=== PATIENT | male | born 1980 | race Caucasian/White ===

== ENCOUNTER 2024-09-10 08:43 | Emergency (ER) | payer BC ==
[2024-09-10 08:52] VITALS: RESP 18
--- NOTE | 2024-09-10 09:07 | ED ---
General Adult HPI - General Chief complaint: Recheck/Abnormal Lab/Rx Stated complaint: Repeated hiccups Time Seen by Provider: 09/10/24 08:54 Source: patient, RN notes reviewed, old records reviewed Mode of arrival: ambulatory Limitations: no limitations - History of Present Illness Initial comments: Patient is a 43-year-old male who presents emergency department for persistent hiccups. Has been having them for the last 7 to 10 days. Has followed up with urgent care multiple times. States that baclofen seems to help with the hiccups. Took a dose earlier today, and this did improve his hiccups. Currently does not have them but was sent here by urgent care to be evaluated further. Has not had any further care at this point. No significant past medical history other than inguinal hernias. He did have these repaired. He has no acute complaints at this time. Denies chest pain, shortness of breath, abdominal pain, nausea, vomiting. States that no home remedies seem to help the hiccups, but the baclofen does. Presents for further evaluation. - Related Data Previous Rx's Medication Instructions Recorded Famotidine [Pepcid] 20 mg PO DAILY 14 Days #14 tablet 09/10/24 Metoclopramide [Reglan] 10 mg PO TID 10 Days #30 tab 09/10/24 Allergies Allergy/AdvReac Type Severity Reaction Status Date / Time No Known Allergies Allergy Verified 09/10/24 08:52 Review of Systems ROS Statement: Those systems with pertinent positive or pertinent negative responses have been documented in the HPI. Review of Systems: CONST: Denies fever EYES: Denies blurry vision ENT: Denies nasal congestion C/V: Denies Chest pain RESP: Denies shortness of breath GI: Denies abdominal pain : Denies dysuria SKIN: Denies rash. MSK: Denies joint pain. NEURO: Denies headache ROS Other: All systems not noted in ROS Statement are negative. Past Medical History Past Medical History: No Reported History Past Surgical History: Hernia Repair Past Psychological History: No Psychological Hx Reported Smoking Status: Never smoker Past Alcohol Use History: Occasional Past Drug Use History: None Reported General Exam - General Exam Comments Initial Comments: General: Appears in no acute distress. HEAD: Normal with no signs of head trauma. EYES: EOMI ENT: Hearing grossly intact, normal oropharynx. RESPIRATORY: Clear breath sounds bilaterally. No wheezes, rales, or rhonchi. C/V: Regular rate and rhythm. S1 and S2 auscultated, no edema, peripheral pulses 2+ and intact throughout ABD: Abd is soft, nontender, nondistended EXT: No obvious deformity SKIN: No rashes or lesions observed on exposed skin. NEURO: Alert and oriented x 4 Limitations: no limitations Course Vital Signs 09/10/24 08:49 Temperature 97.7 F Pulse Rate 93 Respiratory 18 Rate Blood Pressure 149/99 O2 Sat by Pulse 100 Oximetry Medical Decision Making - Medical Decision Making Was pt. sent in by a medical professional or institution (, [facility], [facility], urgent care, hospital, or fci...) When possible be specific @ -Sent by urgent care for further evaluation Did you speak to anyone other than the patient for history (EMS, parent, family, police, friend...)? What history was obtained from this source @ -No Did you review nursing and triage notes (agree or disagree)? Why? @ -I reviewed and agree with nursing and triage notes Were old charts reviewed (outside hosp., previous admission, EMS record, old EKG, old radiological studies, urgent care reports/EKG's, fci records)? Report findings @ -No old charts were reviewed Differential Diagnosis (chest pain, altered mental status, abdominal pain women, abdominal pain men, vaginal bleeding, weakness, fever, dyspnea, syncope, headache, dizziness, GI bleed, back pain, seizure, CVA, palpatations, mental health, musculoskeletal)? @ -Hiccups, electrolyte abnormality, cardiac abnormality. This list is not all inclusive. EKG interpreted by me (3pts min.). @ -As above X-rays interpreted by me (1pt min.). @ -Chest x-ray shows no evidence of acute cardiopulmonary process. CT interpreted by me (1pt min.). @ -None done U/S interpreted by me (1pt. min.). @ -None done What testing was considered but not performed or refused? (CT, X-rays, U/S, labs)? Why? @ -None What meds were considered but not given or refused? Why? @ -None Did you discuss the management of the patient with other professionals (pro fessionals i.e. , [facility], [facility], lab, RT, psych nurse, social media coordinator, director of strategic programs, teacher, business banking officer, residential case manager)? Give summary @ -No Was smoking cessation discussed for >3mins.? @ -No Was critical care preformed (if so, how long)? @ -No Were there social determinants of health that impacted care today? How? (Homelessness, low income, unemployed, alcoholism, drug addiction, transportation, low edu. Level, literacy, decrease access to med. care, prison, rehab)? @ -No Was there de-escalation of care discussed even if they declined (Discuss DNR or withdrawal of care, Hospice)? DNR status @ -No What co-morbidities impacted this encounter? (DM, HTN, Smoking, COPD, CAD, Cancer, CVA, ARF, Chemo, Hep., AIDS, mental health diagnosis, sleep apnea, morbid obesity)? @ -None Was patient admitted / discharged? Hospital course, mention meds given and route, prescriptions, significant lab abnormalities, going to OR and other pertinent info. @ -Patient has had persistent hiccups for the last 7 to 10 days. Only recent plan to baclofen. Took a dose of this prior to arrival and patient currently d oes not have any hiccups. Sent by urgent care for further evaluation and further workup as he has presented to them multiple times this week. We will obtain screening EKG, chest x-ray, as well as basic electrolyte laboratory studies. He was in agreement this plan. Vitals are within acceptable limits. He is in no acute distress. He will be given a dose of Pepcid. Chest x-ray unremarkable. EKG unremarkable, no signs of acute ischemic changes. Laboratory studies within acceptable limits. On reevaluation, patient continues to have no hiccups. I discussed results with him. He will be discharged home on Pepcid and Reglan. Instructed to follow-up with Dr. Sol his PCP. He was in agreement this plan. Strict return precautions discussed. I will provide the patient with a prescription for Pepcid, Reglan. I instructed the patient to follow up with their PCP in the next 1-3 days.. I explained that the patient should return to the emergency department if they experience any worsening symptoms. Strict return precautions were discussed with the patient. The patient expressed understanding of these instructions. I answered all questions that the patient had. The patient was discharged home in good condition with their prescriptions and follow up information. Patient had no hiccups throughout his stay in the ER. Undiagnosed new problem with uncertain prognosis? @ -No Drug Therapy requiring intensive monitoring for toxicity (Heparin, Nitro, Insulin, Cardizem)? @ -No Were any procedures done? @ -No Diagnosis/symptom? @ -Intractable hiccups Acute, or Chronic, or Acute on Chronic? @ -Acute Uncomplicated (without systemic symptoms) or Complicated (systemic symptoms)? @ -Uncomplicated Side effects of treatment? @ -None Exacerbation, Progression, or Severe Exacerbation] @ -No Poses a threat to life or bodily function? @ -Unlikely - Lab Data Result diagrams: 09/10/24 09:22 Lab Results 09/10/24 Range/Units 09:22 Sodium 139 (137-145) mmol/L Potassium 4.2 (3.5-5.1) mmol/L Chloride 103 (98-107) mmol/L Carbon Dioxide 26 (22-30) mmol/L Anion Gap 10 mmol/L BUN 15 (9-20) mg/dL Creatinine 0.85 (0.66-1.25) mg/dL Est GFR (CKD-EPI)AfAm >90 (>60 ml/min/1.73 sqM) Est GFR (CKD-EPI)NonAf >90 (>60 ml/min/1.73 sqM) Glucose 108 H (74-99) mg/dL Calcium 9.5 (8.4-10.2) mg/dL Magnesium 2.4 H (1.6-2.3) mg/dL Total Bilirubin 0.6 (0.2-1.3) mg/dL AST 27 (17-59) U/L ALT 32 (4-49) U/L Alkaline Phosphatase 73 (38-126) U/L Total Protein 7.7 (6.3-8.2) g/dL Albumin 4.8 (3.5-5.0) g/dL - EKG Data -: EKG Interpreted by Me EKG Comments: 12-lead Electrocardiogram Interpretation Note EKG was reviewed and interpreted by myself. 12-lead ECG performed at 0909 is interpreted by me as revealing normal sinus rhythm at a rate of 75 beats per minute. Challenge is normal. MA interval is 173 ms, QRS duration is 96 ms, QTc is 395 ms. There were no ST or T wave abnormalities to suggest myocardial ischemia or injury. R wave progression across the precordium was satisfactory. By my interpretation this EKG is non-diagnostic for acute ischemia. Disposition Clinical Impression: Intractable hiccups Disposition: HOME SELF-CARE Condition: Good Instructions (If sedation given, give patient instructions): Hiccups (ED) Prescriptions: Famotidine [Pepcid] 20 mg PO DAILY 14 Days #14 tablet Metoclopramide [Reglan] 10 mg PO TID 10 Days #30 tab Is patient prescribed a controlled substance at d/c from ED?: No Referrals: Trever Sol MD [Primary Care Provider] - 1-2 days Time of Disposition: 09:54
[2024-09-10] MEDS: FAMOTIDINE 20 MG/2 ML VIAL IV STA (09:20)
--- NOTE | 2024-09-10 09:35 | XR ---
Chest, 2 view. CLINICAL INDICATION: Male, 43 years old with history of persistent hiccups COMPARISON: TECHNIQUE: PA and lateral views the chest are obtained. FINDINGS: The lungs are clear and there is no consolidative or interstitial opacity. There is no pleural effusion or pneumothorax. The heart, pulmonary vasculature, mediastinum and sonido appear normal. The osseous structures are intact. IMPRESSION: No significant abnormality seen. No acute cardiopulmonary disease. [facility], , 09/10/2024 9:33 AM
[2024-09-10 09:42] LABS: ALT 32 U/L (4-49); AST 27 U/L (17-59); African American GFR (CKD) >90 (>60 ml/min/1.73 sqM); Albumin 4.8 g/dL (3.5-5.0); Alkaline Phosphatase 73 U/L (38-126); Anion Gap 10 mmol/L; Blood Urea Nitrogen 15 mg/dL (9-20); Calcium 9.5 mg/dL (8.4-10.2); Carbon Dioxide 26 mmol/L (22-30); Chloride 103 mmol/L (98-107); Glucose 108 mg/dL (74-99); Magnesium 2.4 mg/dL (1.6-2.3); Non-African American GFR(CKD) >90 (>60 ml/min/1.73 sqM); Potassium 4.2 mmol/L (3.5-5.1); Sodium 139 mmol/L (137-145); Total Bilirubin 0.6 mg/dL (0.2-1.3); Total Protein 7.7 g/dL (6.3-8.2)
[2024-09-10 10:06] VITALS: BP 125/81; PULSE 67; TEMP 98
== END 2024-09-10 10:05 | disposition home or self-care (01) ==
LOC: EC 08:43
DX: R06.6 Hiccough (principal)
CPT/HCPCS: 36415; 93005; 80053; 83735; 71046; 99284; 96374; J3490

== ENCOUNTER 2024-09-11 06:50 | Emergency (ER) | payer BC ==
--- NOTE | 2024-09-11 07:25 | ED ---
Recheck HPI - General Chief Complaint: Recheck/Abnormal Lab/Rx Stated Complaint: Hiccups Time Seen by Provider: 09/11/24 07:07 Source: patient, RN notes reviewed Mode of arrival: ambulatory Limitations: no limitations - History of Present Illness Initial Comments: This is a 43-year-old male who presents to the emergency department for hiccups. Patient states that this started 8 days ago and has been constant. He has been to urgent care twice and was started on baclofen. However, this has not been effective. He was then advised by urgent care yesterday to come here for further evaluation. He had blood work and a chest x-ray done to rule out any other abnormalities, which he states was unremarkable. He was discharged home with Pepcid and Reglan, but states that they have not been helping. He is unable to eat or drink anything as a result. Denies any history of similar problems in the past. Also denies any chest pain, shortness of breath, abdominal pain, nausea, or vomiting. - Related Data Previous Rx's Medication Instructions Recorded Famotidine [Pepcid] 20 mg PO DAILY 14 Days #14 tablet 09/10/24 Metoclopramide [Reglan] 10 mg PO TID 10 Days #30 tab 09/10/24 chlorproMAZINE [Thorazine] 25 mg PO TID #30 tablet 09/11/24 Allergies Allergy/AdvReac Type Severity Reaction Status Date / Time No Known Allergies Allergy Verified 09/11/24 07:04 Review of Systems ROS Statement: Those systems with pertinent positive or pertinent negative responses have been documented in the HPI. ROS Other: All systems not noted in ROS Statement are negative. Past Medical History Past Medical History: No Reported History Past Surgical History: Hernia Repair Past Psychological History: No Psychological Hx Reported Smoking Status: Never smoker Past Alcohol Use History: Occasional Past Drug Use History: None Reported General Exam Limitations: no limitations General appearance: alert, in no apparent distress Head exam: Present: atraumatic, normocephalic, normal inspection Respiratory exam: Present: normal lung sounds bilaterally. Absent: respiratory distress, wheezes, rales, rhonchi, stridor Cardiovascular Exam: Present: regular rate, normal rhythm GI/Abdominal exam: Present: soft, normal bowel sounds. Absent: distended, tenderness, guarding, rebound, rigid Neurological exam: Present: alert, oriented X3, CN II-XII intact Psychiatric exam: Present: normal affect, normal mood Skin exam: Present: warm, dry, intact, normal color. Absent: rash Course Vital Signs 09/11/24 09/11/24 09/11/24 07:04 07:52 07:57 Temperature 97.8 F Pulse Rate 85 Respiratory 18 20 Rate Blood Pressure 122/81 118/76 O2 Sat by Pulse 100 Oximetry 09/11/24 09/11/24 09/11/24 08:18 08:40 08:56 Temperature 98.1 F Pulse Rate 123 H 148 H 112 H Respiratory 26 H 24 Rate Blood Pressure 132/82 136/80 O2 Sat by Pulse 98 99 Oximetry 09/11/24 09/11/24 09/11/24 09:11 09:21 09:35 Temperature 98.1 F Pulse Rate 98 122 H 99 Respiratory 22 22 Rate Blood Pressure 148/80 136/86 O2 Sat by Pulse 99 99 Oximetry Medical Decision Making - Medical Decision Making This is a 43-year-old male who presents to the emergency department for hiccups. Was pt. sent in by a medical professional or institution? @ -No Did you speak to anyone other than the patient for history? @ -No Did you review nursing and triage notes? @ -Yes, and I agree, it is accurate with regards to the patient's symptoms. Were old charts reviewed? @ -Chest x-ray and CMP from yesterday which were unremarkable. Differential Diagnosis? @ -Gastritis, peptic ulcer disease, pancreatitis, pneumonia, hyponatremia, this is not meant to be an all-inclusive list. EKG interpreted by me (3pts min.)? @ -Not obtained X-rays interpreted by me (1pt min.)? @ -Not obtained CT interpreted by me (1pt min.)? @ -Not obtained U/S interpreted by me (1pt. min.)? @ -Not obtained What testing was considered but not performed? (CT, X-rays, U/S, labs)? Why? @ -None What meds were considered but not given? Why? @ -None Did you discuss the management of the patient with other professionals? @ -No Did you reconcile home meds? @ -No Was smoking cessation discussed for >3mins.? @ -No Was critical care preformed (if so, how long)? @ -No Were there social determinants of health that impacted care today? How? (Homelessness, low income, unemployed, alcoholism, drug addiction, transportation, low edu. Level, literacy, decrease access to med. care, retirement, rehab)? @ -No Was there de-escalation of care discussed even if they declined? (Discuss DNR or withdrawal of care, Hospice)? @ -No What co-morbidities impacted this encounter? (DM, HTN, Smoking, COPD, CAD, Cancer, CVA, Hep., AIDS, mental health diagnosis, sleep apnea, morbid obesity)? @ -None Was patient admitted / discharged? @ -Discharged. Patient had active hiccups on exam. When he was evaluated here yesterday he had a laboratory evaluation and a chest x-ray which were both unremarkable. He has been on baclofen, Reglan, and famotidine without any relief. He was subsequently started on a Thorazine infusion with pantoprazole and IV fluids. The hiccups resolved with these medications and he was tolerating oral intake. Thorazine prescribed for further management of any additional hiccups. Advised to follow-up with his PCP in the next couple of days to eventually taper off of this medication. Patient discharged home in stable condition. Case discussed with ED attending Dr. Hays. Return precautions reviewed in depth, the patient is instructed to return to the emergency department with any new, worsening, or concerning symptoms. Patient verbalized understanding. Undiagnosed new problem with uncertain prognosis? @ -None Drug Therapy requiring intensive monitoring for toxicity (Heparin, Nitro, Insulin, Cardizem)? @ -None Were any procedures done? @ -None Diagnosis/symptom? @ -Hiccups Acute, or Chronic, or Acute on Chronic? @ -Acute Uncomplicated (without systemic symptoms) or Complicated (systemic symptoms)? @ -Uncomplicated Side effects of treatment? @ -None Exacerbation, Progression, or Severe Exacerbation] @ -Not applicable Poses a threat to life or bodily function? @ -No Disposition Clinical Impression: Intractable hiccups Disposition: HOME SELF-CARE Instructions (If sedation given, give patient instructions): Hiccups (ED) Additional Instructions: Return to the emergency department with any new, worsening, or concerning sy mptoms. Take the chlorpromazine 3 times daily. If the hiccups return, you can increase this to 2 tablets (50 mg) 3 times daily. Make sure you follow-up with your primary care provider to eventually taper off of the medication. Prescriptions: chlorproMAZINE [Thorazine] 25 mg PO TID #30 tablet Is patient prescribed a controlled substance at d/c from ED?: No Referrals: Trever Sol MD [Primary Care Provider] - 1-2 days Time of Disposition: 08:46
[2024-09-11] MEDS: PANTOPRAZOLE 40 MG/10 ML VIAL IVP ONE (07:46)
[2024-09-11] MEDS: chlorproMAZINE 50 MG in SODIUM CHLORIDE 0.9% 50 ML IV SCH (07:47)
[2024-09-11] MEDS: SODIUM CHLORIDE 0.9% 1,000 ML IV ONE ×2 (07:48→08:59)
[2024-09-11] MEDS: chlorproMAZINE 25 MG/ML 2 ML AMP IM STA (08:00)
[2024-09-11 08:20] VITALS: TEMP 98.1
[2024-09-11 09:12] VITALS: RESP 22
[2024-09-11 09:37] VITALS: BP 136/86; PULSE 99
== END 2024-09-11 09:36 | disposition home or self-care (01) ==
LOC: EC 06:50
DX: R06.6 Hiccough (principal)
CPT/HCPCS: 99283; 96365; 96375; 96361; J3230; J3360; J2470

== ENCOUNTER 2024-10-31 10:15 | Observation (INO) | payer BC ==
[2024-10-31] MEDS: SODIUM CHLORIDE 0.9% 1,000 ML IV STA (11:29)
[2024-10-31] MEDS: MECLIZINE 12.5 MG TAB PO STA (11:30)
[2024-10-31 11:38] LABS: Appearance,Urine Clear (Clear); Bilirubin,Urine Negative (Negative); Blood,Urine Negative (Negative); Color,Urine Light Yellow; Glucose,Urine (UA) Negative (Negative); Ketones,Urine Negative (Negative); Leukocyte Esterase,Urine Negative (Negative); Nitrite,Urine Negative (Negative); PH, Urine 6.5 (5.0-8.0); Protein,Urine Negative (Negative); Urobilinogen,Urine <2.0 mg/dL (<2.0)
[2024-10-31 11:40] LABS: Basophils # (A) 0.08 10*3/uL (0.00-0.10); Basophils % (A) 1.3 %; Eosinophils # (A) 0.08 10*3/uL (0.04-0.35); Eosinophils % (A) 1.3 %; HCT 47.4 % (39.6-50.0); HGB 16.9 g/dL (13.0-17.0); Lymphocytes # (A) 1.01 10*3/uL (0.90-5.00); Lymphocytes % (A) 16.8 %; MCH 31.1 pg (27.0-32.0); MCHC 35.7 g/dL (32.0-37.0); MCV 87.1 fL (80.0-97.0); Monocytes # (A) 0.34 10*3/uL (0.20-1.00); Monocytes % (A) 5.7 %; Neutrophils # (A) 4.48 10*3/uL (1.80-7.70); Neutrophils % (A) 74.6 %; Platelet Count 202 10*3/uL (140-440); RBC 5.44 10*6/uL (4.40-5.60); RDW 11.6 % (11.5-14.5); WBC 6.01 10*3/uL (4.50-10.00)
--- NOTE | 2024-10-31 11:57 | CT ---
EXAMINATION TYPE: CT brain wo con DATE OF EXAM: 10/31/2024 11:54 AM COMPARISON: None. CLINICAL INDICATION: Male, 43 years old with history of recurrent near syncope, Recurrent near syncop e, TECHNIQUE: Examination was done in axial plane without intravenous contrast. Coronal and sagittal r econstructions performed. CT DLP: 1098.4 mGycm, Automated exposure control for dose reduction was used. FINDINGS: There is no evidence of acute intracranial hemorrhage, acute ischemic changes, mass, mass-effect, or extra-axial fluid collection. There is no effacement of cerebral sulci or basal subarachnoid cister ns. There is no hydrocephalus. There is no midline shift. Fields-white matter distinction is preserv ed. Some lobulated mucosal thickening floor of the left maxillary sinus. Mild mucosal thickening ethmoid air cells. Mastoid air cells well pneumatized. IMPRESSION: No acute intracranial abnormality seen. [facility], Workstation: [facility], 10/31/2024 11:55 AM
[2024-10-31 12:01] LABS: ALT 41 U/L (4-49); AST 35 U/L (17-59); African American GFR (CKD) >90 (>60 ml/min/1.73 sqM); Albumin 4.7 g/dL (3.5-5.0); Alkaline Phosphatase 70 U/L (38-126); Anion Gap 9 mmol/L; Blood Urea Nitrogen 20 mg/dL (9-20); Calcium 9.5 mg/dL (8.4-10.2); Carbon Dioxide 27 mmol/L (22-30); Chloride 102 mmol/L (98-107); Creatine Kinase 159 U/L (55-170); Glucose 126 mg/dL (74-99); Magnesium 2.2 mg/dL (1.6-2.3); Non-African American GFR(CKD) >90 (>60 ml/min/1.73 sqM); Potassium 4.4 mmol/L (3.5-5.1); Sodium 138 mmol/L (137-145); Total Bilirubin 0.8 mg/dL (0.2-1.3); Total Protein 7.5 g/dL (6.3-8.2)
[2024-10-31 12:12] LABS: NT-Pro-B-Type Natriuretic Pept <20 pg/mL
[2024-10-31 12:15] LABS: Influenza A Not Detected (Not Detectd); Influenza B Not Detected (Not Detectd); RSV Not Detected (Not Detectd)
--- NOTE | 2024-10-31 12:52 | XR ---
EXAMINATION TYPE: XR chest 2V DATE OF EXAM: 10/31/2024 12:12 PM COMPARISON: 09/10/24 CLINICAL INDICATION: Male, 43 years old with history of near syncope, Chest pain TECHNIQUE: XR chest 2V views of the chest are obtained. FINDINGS: There is no focal air space opacity. No evidence for pneumothorax. No pleural effusion. The cardiac silhouette size is within normal limits. The osseous structures are grossly intact. IMPRESSION: 1. No acute cardiopulmonary process. [facility], , 10/31/2024 12:49 PM
[2024-10-31] MEDS ORDERED: ACETAMINOPHEN TAB 325 MG TAB PO PRN (13:40)
[2024-10-31] MEDS ORDERED: NALOXONE 0.4 MG/ML 1 ML VIAL IV PRN (13:40)
[2024-10-31] MEDS ORDERED: ONDANSETRON 4 MG/2 ML VIAL IVP PRN (13:40)
--- NOTE | 2024-10-31 13:49 | ED ---
General Adult HPI - General Chief complaint: Dizziness Stated complaint: Dizziness, heart complications Time Seen by Provider: 10/31/24 10:50 Source: patient, RN notes reviewed, old records reviewed Mode of arrival: EMS Limitations: no limitations - History of Present Illness Initial comments: Patient is a 43-year-old male who presents emergency department complaining of multiple weeks of worsening lightheadedness as well as near syncopal ep isodes.Describes lightheadedness as a lightheaded feeling but no room spinning. This has become more frequent particularly over the last week or so per patient. No cardiac history. Denies any chest pain or shortness of breath. States he occasionally gets diaphoretic when he has the symptoms. Denies any cough, congestion, fevers. No other obvious acute complaints. No recent long distance travel. No evidence of lower extremity swelling. No history of blood clots. 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 Has no acute complaints. States symptoms have been worse over the last few days. States he gets tunnel vision as well as lightheadedness and feels like he is going to pass out but has not actually had a syncopal episode. He has recurrent near syncope with the above complaints. - Related Data Home Medications Medication Instructions Recorded Confirmed Ibuprofen [Motrin Ib] 600 mg PO Q6H PRN 10/31/24 10/31/24 Allergies Allergy/AdvReac Type Severity Reaction Status Date / Time No Known Allergies Allergy Verified 10/31/24 13:26 Review of Systems ROS Statement: Those systems with pertinent positive or pertinent negative responses have been documented in the HPI. Review of Systems: CONST: Denies fever EYES: Denies blurry vision ENT: Denies nasal congestion C/V: Denies Chest pain RESP: Denies shortness of breath GI: Denies abdominal pain : Denies dysuria SKIN: Denies rash. MSK: Denies joint pain. NEURO: Endorses lightheadedness ROS Other: All systems not noted in ROS Statement are negative. Past Medical History Past Medical History: No Reported History Past Surgical History: Hernia Repair Past Psychological History: No Psychological Hx Reported Smoking Status: Never smoker Past Alcohol Use History: Occasional Past Drug Use History: None Reported General Exam - General Exam Comments Initial Comments: General: Appears in no acute distress. HEAD: Normal with no signs of head trauma. EYES: EOMI pupils are 3 mm and equal bilaterally. ENT: Hearing grossly intact, normal oropharynx. RESPIRATORY: Clear breath sounds bilaterally. No wheezes, rales, or rhonchi. C/V: Regular rate and rhythm. S1 and S2 auscultated, no edema, peripheral pulses 2+ and intact throughout ABD: Abd is soft, nontender, nondistended EXT: No obvious deformity SKIN: No rashes or lesions observed on exposed skin. NEURO: Alert and oriented x 4. Cranial nerves II-XII intact. No focal sensory or strength deficits. NIH is 0. GCS 15. Limitations: no limitations Course Vital Signs 10/31/24 10/31/24 10/31/24 10:16 11:05 13:03 Temperature 97.9 F 98 F Pulse Rate 91 77 Pulse Rate [ 90 Apical] Respiratory 18 16 Rate Blood Pressure 145/91 125/76 O2 Sat by Pulse 98 100 Oximetry Medical Decision Making - Medical Decision Making Was pt. sent in by a medical professional or institution (, PA, [employer], urgent care, hospital, or halfway...) When possible be specific @ -No Did you speak to anyone other than the patient for history (EMS, parent, family, police, friend...)? What history was obtained from this source @ -No Did you review nursing and triage notes (agree or disagree)? Why? @ -I reviewed and agree with nursing and triage notes Were old charts reviewed (outside hosp., previous admission, EMS record, old EKG, old radiological studies, urgent care reports/EKG's, halfway records)? Report findings @ -No old charts were reviewed Differential Diagnosis (chest pain, altered mental status, abdominal pain women, abdominal pain men, vaginal bleeding, weakness, fever, dyspnea, syncope, heada kandice, dizziness, GI bleed, back pain, seizure, CVA, palpatations, mental health, musculoskeletal)? @ -Differential Syncope: Valvular disease, hypertrophic cardiomyopathy, pulmonary embolism, tamponade, tachycardia, bradycardia, [place], hypovolemia, hemorrhage, dissection, anemia, intracranial hemorrhage, seizure, hypoglycemia, carbon monoxide poisoning, this is not meant to be an all-inclusive list. EKG interpreted by me (3pts min.). @ -As above X-rays interpreted by me (1pt min.). @ -Chest x-ray reveals no obvious acute cardiopulmonary process. CT interpreted by me (1pt min.). @ -CT brain reveals no obvious acute intracranial process. U/S interpreted by me (1pt. min.). @ -None done What testing was considered but not performed or refused? (CT, X-rays, U/S, labs)? Why? @ -None What meds were considered but not given or refused? Why? @ -None Did you discuss the management of the patient with other professionals (professionals i.e. , PA, [employer], lab, RT, psych nurse, social work program coordinator, fireboat operator, teacher, seaman officer, pillowcase cutter)? Give summary @ -Discussed with admitting provider, Dr. Sol who accepted the admission. Was smoking cessation discussed for >3mins.? @ -No Was critical care preformed (if so, how long)? @ -No Were there social determinants of health that impacted care today? How? (Homelessness, low income, unemployed, alcoholism, drug addiction, transportation, low edu. Level, literacy, decrease access to med. care, prison, rehab)? @ -No Was there de-escalation of care discussed even if they declined (Discuss DNR or withdrawal of care, Hospice)? DNR status @ -No What co-morbidities impacted this encounter? (DM, HTN, Smoking, COPD, CAD, Cancer, CVA, ARF, Chemo, Hep., AIDS, mental health diagnosis, sleep apnea, morbid obesity)? @ -None Was patient admitted / discharged? Hospital course, mention meds given and route, prescriptions, significant lab abnormalities, going to OR and other pertinent info. @ -Presents for numerous lightheadedness and near syncopal episodes. We will obtain cardiac workup and discussed with patient we also obtain CT brain. S ymptoms have been worsening over the last few days but have progressively gotten worse. He will be given IV fluids as well as a dose of meclizine. He was in agreement this plan. EKG shows no signs of acute ischemia. CT brain and chest x-ray unremarkable. Labs are also all within acceptable limits. I discussed results with the patient and he is still having some lightheadedness. No near syncopal episodes since arrival. After discussion with the patient, we will admit the patient observation for cardiology evaluation. I spoke with the admitting provider, Dr. Sol who accepted the admission. Echo ordered. Undiagnosed new problem with uncertain prognosis? @ -No Drug Therapy requiring intensive monitoring for toxicity (Heparin, Nitro, Insulin, Cardizem)? @ -No Were any procedures done? @ -No Diagnosis/symptom? @ -Lightheadedness, near syncope Acute, or Chronic, or Acute on Chronic? @ -Acute Uncomplicated (without systemic symptoms) or Complicated (systemic symptoms)? @ -Complicated Side effects of treatment? @ -No Exacerbation, Progression, or Severe Exacerbation? @ -No Poses a threat to life or bodily function? How? (Chest pain, USA, WA, pneumonia, PE, COPD, DKA, ARF, appy, cholecystitis, CVA, Diverticulitis, Homicidal, Suicidal, threat to staff... and all critical care pts) @ -Potentially, yes - Lab Data Result diagrams: 10/31/24 11:25 10/31/24 11:25 Lab Results 10/31/24 10/31/24 10/31/24 Range/Units 11:25 11:25 11:25 WBC 6.01 (4.50-10.00) 10*3/uL RBC 5.44 (4.40-5.60) 10*6/uL Hgb 16.9 (13.0-17.0) g/dL Hct 47.4 (39.6-50.0) % MCV 87.1 (80.0-97.0) fL MCH 31.1 (27.0-32.0) pg MCHC 35.7 (32.0-37.0) g/dL Plt Count 202 (140-440) 10*3/uL MPV 10.0 (9.5-12.2) fL Immature Gran % (Auto) 0.3 % Neutrophils % 74.6 % Lymphocytes % 16.8 % Monocytes % 5.7 % Eosinophils % 1.3 % Basophils % 1.3 % Immature Gran # 0.02 (0.00-0.04) 10*3/uL Neutrophils # 4.48 (1.80-7.70) 10*3/uL Lymphocytes # 1.01 (0.90-5.00) 10*3/uL Monocytes # 0.34 (0.20-1.00) 10*3/uL Eosinophils # 0.08 (0.04-0.35) 10*3/uL Basophils # 0.08 (0.00-0.10) 10*3/uL D-Dimer (<0.60) mg/L FEU Sodium 138 (137-145) mmol/L Potassium 4.4 (3.5-5.1) mmol/L Chloride 102 (98-107) mmol/L Carbon Dioxide 27 (22-30) mmol/L Anion Gap 9 mmol/L BUN 20 (9-20) mg/dL Creatinine 0.84 (0.66-1.25) mg/dL Est GFR (CKD-EPI)AfAm >90 (>60 ml/min/1.73 sqM) Est GFR (CKD-EPI)NonAf >90 (>60 ml/min/1.73 sqM) Glucose 126 H (74-99) mg/dL Plasma Lactic Acid Jordan (0.7-2.0) mmol/L Calcium 9.5 (8.4-10.2) mg/dL Magnesium 2.2 (1.6-2.3) mg/dL Total Bilirubin 0.8 (0.2-1.3) mg/dL AST 35 (17-59) U/L ALT 41 (4-49) U/L Alkaline Phosphatase 70 (38-126) U/L Creatine Kinase 159 (55-170) U/L Troponin I (0.000-0.034) ng/mL NT-Pro-B Natriuret Pep <20 pg/mL Total Protein 7.5 (6.3-8.2) g/dL Albumin 4.7 (3.5-5.0) g/dL TSH 1.690 (0.465-4.680) mIU/L Urine Color Light Yellow Urine Appearance Clear (Clear) Urine pH 6.5 (5.0-8.0) Ur Specific [place] 1.020 (1.001-1.035) Urine Protein Negative (Negative) Urine Glucose (UA) Negative (Negative) Urine Ketones Negative (Negative) Urine Blood Negative (Negative) Urine Nitrite Negative (Negative) Urine Bilirubin Negative (Negative) Urine Urobilinogen <2.0 (<2.0) mg/dL Ur Leukocyte Esterase Negative (Negative) Influenza Type A (PCR) (Not Detectd) Influenza Type B (PCR) (Not Detectd) RSV (PCR) (Not Detectd) SARS-CoV-2 (PCR) (Not Detectd) 04/29/25 04/29/25 04/29/25 Range/Units 11:25 11:25 11:25 WBC (4.50-10.00) 10*3/uL RBC (4.40-5.60) 10*6/uL Hgb (13.0-17.0) g/dL Hct (39.6-50.0) % MCV (80.0-97.0) fL MCH (27.0-32.0) pg MCHC (32.0-37.0) g/dL Plt Count (140-440) 10*3/uL MPV (9.5-12.2) fL Immature Gran % (Auto) % Neutrophils % % Lymphocytes % % Monocytes % % Eosinophils % % Basophils % % Immature Gran # (0.00-0.04) 10*3/uL Neutrophils # (1.80-7.70) 10*3/uL Lymphocytes # (0.90-5.00) 10*3/uL Monocytes # (0.20-1.00) 10*3/uL Eosinophils # (0.04-0.35) 10*3/uL Basophils # (0.00-0.10) 10*3/uL D-Dimer 0.22 (<0.60) mg/L FEU Sodium (137-145) mmol/L Potassium (3.5-5.1) mmol/L Chloride (98-107) mmol/L Carbon Dioxide (22-30) mmol/L Anion Gap mmol/L BUN (9-20) mg/dL Creatinine (0.66-1.25) mg/dL Est GFR (CKD-EPI)AfAm (>60 ml/min/1.73 sqM) Est GFR (CKD-EPI)NonAf (>60 ml/min/1.73 sqM) Glucose (74-99) mg/dL Plasma Lactic Acid [place] 1.0 (0.7-2.0) mmol/L Calcium (8.4-10.2) mg/dL Magnesium (1.6-2.3) mg/dL Total Bilirubin (0.2-1.3) mg/dL AST (17-59) U/L ALT (4-49) U/L Alkaline Phosphatase (38-126) U/L Creatine Kinase (55-170) U/L Troponin I <0.012 (0.000-0.034) ng/mL NT-Pro-B Natriuret Pep pg/mL Total Protein (6.3-8.2) g/dL Albumin (3.5-5.0) g/dL TSH (0.465-4.680) mIU/L Urine Color Urine Appearance (Clear) Urine pH (5.0-8.0) Ur Specific [place] (1.001-1.035) Urine Protein (Negative) Urine Glucose (UA) (Negative) Urine Ketones (Negative) Urine Blood (Negative) Urine Nitrite (Negative) Urine Bilirubin (Negative) Urine Urobilinogen (<2.0) mg/dL Ur Leukocyte Esterase (Negative) Influenza Type A (PCR) (Not Detectd) Influenza Type B (PCR) (Not Detectd) RSV (PCR) (Not Detectd) SARS-CoV-2 (PCR) (Not Detectd) 10/31/24 Range/Units 11:25 WBC (4.50-10.00) 10*3/uL RBC (4.40-5.60) 10*6/uL Hgb (13.0-17.0) g/dL Hct (39.6-50.0) % MCV (80.0-97.0) fL MCH (27.0-32.0) pg MCHC (32.0-37.0) g/dL Plt Count (140-440) 10*3/uL MPV (9.5-12.2) fL Immature Gran % (Auto) % Neutrophils % % Lymphocytes % % Monocytes % % Eosinophils % % Basophils % % Immature Gran # (0.00-0.04) 10*3/uL Neutrophils # (1.80-7.70) 10*3/uL Lymphocytes # (0.90-5.00) 10*3/uL Monocytes # (0.20-1.00) 10*3/uL Eosinophils # (0.04-0.35) 10*3/uL Basophils # (0.00-0.10) 10*3/uL D-Dimer (<0.60) mg/L FEU Sodium (137-145) mmol/L Potassium (3.5-5.1) mmol/L Chloride (98-107) mmol/L Carbon Dioxide (22-30) mmol/L Anion Gap mmol/L BUN (9-20) mg/dL Creatinine (0.66-1.25) mg/dL Est GFR (CKD-EPI)AfAm (>60 ml/min/1.73 sqM) Est GFR (CKD-EPI)NonAf (>60 ml/min/1.73 sqM) Glucose (74-99) mg/dL Plasma Lactic Acid [place] (0.7-2.0) mmol/L Calcium (8.4-10.2) mg/dL Magnesium (1.6-2.3) mg/dL Total Bilirubin (0.2-1.3) mg/dL AST (17-59) U/L ALT (4-49) U/L Alkaline Phosphatase (38-126) U/L Creatine Kinase (55-170) U/L Troponin I (0.000-0.034) ng/mL NT-Pro-B Natriuret Pep pg/mL Total Protein (6.3-8.2) g/dL Albumin (3.5-5.0) g/dL TSH (0.465-4.680) mIU/L Urine Color Urine Appearance (Clear) Urine pH (5.0-8.0) Ur Specific [place] (1.001-1.035) Urine Protein (Negative) Urine Glucose (UA) (Negative) Urine Ketones (Negative) Urine Blood (Negative) Urine Nitrite (Negative) Urine Bilirubin (Negative) Urine Urobilinogen (<2.0) mg/dL Ur Leukocyte Esterase (Negative) Influenza Type A (PCR) Not Detected (Not Detectd) Influenza Type B (PCR) Not Detected (Not Detectd) RSV (PCR) Not Detected (Not Detectd) SARS-CoV-2 (PCR) Not Detected (Not Detectd) - EKG Data -: EKG Interpreted by Me EKG Comments: 12-lead Electrocardiogram Interpretation Note EKG was reviewed and interpreted by myself. 12-lead ECG performed at 1029 is interpreted by me as revealing normal sinus rhythm at a rate of 90 beats per min kyara. [place] is normal. RI interval is 175 ms, QRS durations 102 ms, QTc is 394 ms.. There were no ST or T wave abnormalities to suggest myocardial ischemia or injury. R wave progression across the precordium was satisfactory. By my interpretation this EKG is non-diagnostic for acute ischemia. Disposition Clinical Impression: Near syncope, Lightheadedness Disposition: ADMITTED IP TO THIS HOSP Condition: Stable Referrals: Trever Sol MD [Primary Care Provider] - 1-2 days Time of Disposition: 13:35
[2024-10-31] MEDS: SODIUM CHLORIDE 0.9% 1,000 ML IV SCH (14:52)
[2024-11-01 07:32] VITALS: RESP 16; TEMP 98.7
[2024-11-01 08:18] LABS: Basophils # (A) 0.07 X 10*3/uL (0.00-0.10); Basophils % (A) 1.1 %; Eosinophils # (A) 0.19 X 10*3/uL (0.04-0.35); Eosinophils % (A) 3.1 %; HCT 48.3 % (39.6-50.0); HGB 16.3 g/dL (13.0-17.0); Lymphocytes % (A) 30.7 %; MCH 30.6 pg (27.0-32.0); MCHC 33.7 g/dL (32.0-37.0); MCV 90.8 FL (80.0-97.0); Mean Platelet Volume 10.5 FL (9.5-12.2); Monocytes % (A) 9.7 %; NRBC Per 100 WBC 0 X 10*3/uL (0.00-0.01); Neutrophils % (A) 55.1 %; Platelet Count 189 X 10*3/uL (140-440); RBC 5.32 X 10*6/uL (4.40-5.60); WBC 6.18 X 10*3/uL (4.50-10.00)
--- NOTE | 2024-11-01 08:30 | P.HPIM ---
History of Present Illness H&P Date: 11/01/24 Chief Complaint: Lightheadedness and dizziness. The patient is here essentially as a 43-year-old white male who has had continued lightheadedness. It is without provocative or palliative issue it spontaneously appears. He does not stop driving however and no falls. No true syncope stated evaluation in the emergency room did not show significant pathology but he is admitted for appropriate evaluation and cardiac testing. There is family history of seizure and diabetes. No previous head trauma. Review of Systems Constitutional: Denies chills, Denies fever Eyes: denies blurred vision, denies pain Ears, nose, mouth and throat: Denies headache, Denies sore throat Cardiovascular: Reports lightheadedness, Denies chest pain, Denies shortness of breath Respiratory: Denies cough Gastrointestinal: Denies abdominal pain, Denies diarrhea, Denies nausea, Denies vomiting Musculoskeletal: Denies myalgias Past Medical History Past Medical History: No Reported History History of Any Multi-Drug Resistant Organisms: None Reported Past Surgical History: Hernia Repair Past Psychological History: No Psychological Hx Reported Smoking Status: Former smoker Past Alcohol Use History: Rare Past Drug Use History: None Reported - Past Family History Mother Family Medical History: No Reported History Father Family Medical History: Diabetes Mellitus Medications and Allergies Home Medications Medication Instructions Recorded Confirmed Type Ibuprofen [Motrin Ib] 600 mg PO Q6H PRN 10/31/24 10/31/24 History Allergies Allergy/AdvReac Type Severity Reaction Status Date / Time No Known Allergies Allergy Verified 10/31/24 13:26 Physical Exam Vitals: Vital Signs Temp Pulse Pulse Pulse Pulse Pulse Resp 11/01/24 08:14 79 84 83 11/01/24 07:00 98.7 F 85 16 11/01/24 01:08 98.0 F 89 17 10/31/24 20:00 97.7 F 73 17 10/31/24 18:32 78 18 10/31/24 17:10 75 18 10/31/24 15:47 98.1 F 89 16 10/31/24 13:03 98 F 77 16 10/31/24 11:05 90 10/31/24 10:16 97.9 F 91 18 BP BP BP BP BP Pulse Ox 11/01/24 08:14 114/80 124/85 115/72 11/01/24 07:00 108/61 99 11/01/24 01:08 103/58 100 10/31/24 20:00 129/86 98 10/31/24 18:32 119/69 98 10/31/24 17:10 124/76 99 10/31/24 15:47 114/67 10/31/24 13:03 125/76 100 10/31/24 11:05 10/31/24 10:16 145/91 98 Intake and Output 10/31/24 11/01/24 11/01/24 22:59 06:59 14:59 Other: Voiding Method Toilet Toilet # Voids 1 2 Weight 81.647 kg - Constitutional General appearance: no acute distress - EENT Eyes: EOMI - Neck Neck: no lymphadenopathy - Respiratory Respiratory: bilateral: CTA - Cardiovascular Rhythm: regular Heart sounds: normal: S1, S2 Abnormal Heart Sounds: no S3 Gallop - Gastrointestinal General gastrointestinal: soft, no tenderness - Integumentary Integumentary: no cellulitis Results CBC & Chem 7: 11/01/24 05:08 10/31/24 11:25 Labs: Abnormal Lab Results - Last 24 Hours (Table) 10/31/24 Range/Units 11:25 Glucose 126 H (74-99) mg/dL Thrombosis Risk Factor Assmnt - Choose All That Apply Each Factor Represents 1 point: Age 41-60 years Thrombosis Risk Factor Assessment Total Risk Factor Score: 1 Thrombosis Risk Factor Assessment Level: Low Risk Assessment and Plan (1) Lightheadedness Current Visit: Yes Status: Acute Code(s): R42 - DIZZINESS AND GIDDINESS SNOMED Code(s): 102043846 (2) Near syncope Current Visit: Yes Status: Acute Code(s): R55 - SYNCOPE AND COLLAPSE SNOMED Code(s): 467348857 Plan: Await cardiology input. Question need for event monitor. Otherwise consider neurology evaluation with possible MRI EEG. Reconcile medications necessary. The patient is full code.
[2024-11-01 08:33] LABS: ALT 35 U/L (10-49); AST 23 U/L (14-35); Albumin 4.1 g/dL (3.8-4.9); Albumin/Globulin Ratio 1.86 Ratio (1.60-3.17); Alkaline Phosphatase 74 U/L (41-126); BUN/Creat Ratio 16.78 Ratio (12.00-20.00); Blood Urea Nitrogen 15.1 mg/dL (9.0-27.0); Carbon Dioxide 23.1 mmol/L (21.6-31.8); Chloride 108 mmol/L (96-109); Globulin 2.2 g/dL (1.6-3.3); Glucose 107 mg/dL (70-110); Potassium 4.5 mmol/L (3.5-5.5); Sodium 139 mmol/L (135-145); Total Bilirubin 0.5 mg/dL (0.3-1.2); Total Protein 6.3 g/dL (6.2-8.2)
[2024-11-01] MEDS: ENOXAPARIN 40 MG/0.4 ML SYRINGE SQ SCH (10:09)
[2024-11-01 14:11] VITALS: BP 128/76; PULSE 60
--- NOTE | 2024-11-01 14:42 | P.CRDCN ---
History of Present Illness Consult date: 11/01/24 Reason for Consult (text): Recurrent near syncope History of present illness: This is a 43-year-old male with no previous medical history. We have been asked to evaluate patient for recurrent near syncope. Patient states that he has had multiple episodes where he nearly passes out. He states it can happen at any time. He has never passed out but feels a tunnel type vision. He denies spinning. He gets sweaty with the episode and then after the episode he feels tired. In between the episodes he feels okay and he is normally quite active. He states he normally drinks a lot of coffee and over the past week he has tried to cut it down but has not noticed any change in his symptoms. He does not notice that is related to food intake. He states he did have hiccups for 13 days and was started on Thorazine from an ER visit. He denies any pain anywhere. He states his watch will show during the episodes that his heart rate is 115 220. He denies any smoking history and no alcohol use. He denies family history of coronary artery disease. Blood pressure 108/61, heart rate 85, pulse ox 99% on room air. -EKG: Sinus rhythm with no acute ST-T wave changes. -Chest x-ray: No acute process. -Laboratory studies: None of them wanted CBC, CMP normal except for blood sugar 126. Troponin negative x 3. proBNP less than 20. TSH 1.69. Cepheid viral panel not detected. -Home cardiac medications: None Review Of Systems: At the time of my exam: CONSTITUTIONAL: Denies fever or chills. HEENT: Denies blurred vision, vision changes, or eye pain. Denies hemoptysis CARDIOVASCULAR: Denies chest pain. Denies orthopnea. Denies PND. Denies palpitations RESPIRATORY: Denies shortness of breath. GASTROINTESTINAL: Denies abdominal pain. Denies nausea or vomiting. HEMATOLOGIC: Denies bleeding disorders. GENITOURINARY: Denies any blood in urine. SKIN: Denies puritis. Denies rash. Physical examination: Gen: This is a 43-year-old male in no acute distress VS: reviewed HEENT: Head is atraumatic, normocephalic. Pupils equal, round. Sclerae is anicteric. NECK: Supple. No JVD. LUNGS: Clear to auscultation. No wheezes or rhonchi. No intercostal retractions. HEART: Regular rate and rhythm. No murmur. ABDOMEN: Soft No tenderness. EXTREMITIES: No pedal edema. No calf tenderness. NEUROLOGICAL: Patient is awake, alert and oriented x3. Assessment: Near syncopal episodes Heavy caffeine intake Plan: Obtain orthostatic vital signs Obtain 2-D echocardiogram and Doppler study to assess cardiac structure and function If echocardiogram is unremarkable, patient is cleared for discharge. Patient may follow-up in the office with Dr. Cummings and will be considered for stress test Patient will have a 7-day event monitor prior to discharge Follow-up with Dr. Cummings in 2 weeks Thank you kindly for this consultation. Nurse practitioner note has been reviewed, I agree with documented findings and plan of care. Patient was seen and examined. I did not Past Medical History Past Medical History: No Reported History History of Any Multi-Drug Resistant Organisms: None Reported Past Surgical History: Hernia Repair Past Psychological History: No Psychological Hx Reported Smoking Status: Former smoker Past Alcohol Use History: Rare Past Drug Use History: None Reported - Past Family History Mother Family Medical History: No Reported History Father Family Medical History: Diabetes Mellitus Medications and Allergies Home Medications Medication Instructions Recorded Confirmed Type Ibuprofen [Motrin Ib] 600 mg PO Q6H PRN 10/31/24 10/31/24 History Allergies Allergy/AdvReac Type Severity Reaction Status Date / Time No Known Allergies Allergy Verified 10/31/24 13:26 Physical Exam Vitals: Vital Signs Temp Pulse Pulse Resp BP BP Pulse Ox 11/01/24 07:00 98.7 F 85 16 108/61 99 11/01/24 01:08 98.0 F 89 17 103/58 100 10/31/24 20:00 97.7 F 73 17 129/86 98 10/31/24 18:32 78 18 119/69 98 10/31/24 17:10 75 18 124/76 99 10/31/24 15:47 98.1 F 89 16 114/67 10/31/24 13:03 98 F 77 16 125/76 100 10/31/24 11:05 90 10/31/24 10:16 97.9 F 91 18 145/91 98 Intake and Output 10/31/24 11/01/24 11/01/24 22:59 06:59 14:59 Other: Voiding Method Toilet Toilet # Voids 1 2 Weight 81.647 kg Results 11/01/24 05:08 11/01/24 05:08 Cardiac Enzymes 10/31/24 10/31/24 10/31/24 Range/Units 11:25 11:25 14:21 AST 35 (17-59) U/L Troponin I <0.012 <0.012 (0.000-0.034) ng/mL 10/31/24 Range/Units 17:37 AST (17-59) U/L Troponin I <0.012 (0.000-0.034) ng/mL CBC 10/31/24 Range/Units 11:25 WBC 6.01 (4.50-10.00) 10*3/uL RBC 5.44 (4.40-5.60) 10*6/uL Hgb 16.9 (13.0-17.0) g/dL Hct 47.4 (39.6-50.0) % Plt Count 202 (140-440) 10*3/uL Comprehensive Metabolic Panel 10/31/24 Range/Units 11:25 Sodium 138 (137-145) mmol/L Potassium 4.4 (3.5-5.1) mmol/L Chloride 102 (98-107) mmol/L Carbon Dioxide 27 (22-30) mmol/L BUN 20 (9-20) mg/dL Creatinine 0.84 (0.66-1.25) mg/dL Glucose 126 H (74-99) mg/dL Calcium 9.5 (8.4-10.2) mg/dL AST 35 (17-59) U/L ALT 41 (4-49) U/L Alkaline Phosphatase 70 (38-126) U/L Total Protein 7.5 (6.3-8.2) g/dL Albumin 4.7 (3.5-5.0) g/dL Current Medications Generic Name Dose Route Start Last Admin Trade Name Freq PRN Reason Stop Dose Admin Acetaminophen 650 mg 10/31/24 13:40 Acetaminophen Tab 325 Mg Tab PO Q6HR PRN Mild Pain or Fever > 100.5 Enoxaparin Sodium 40 mg 11/01/24 09:00 Enoxaparin 40 Mg/0.4 Ml Syringe SQ DAILY TERRENCE Sodium Chloride 1,000 mls @ 75 mls/hr 10/31/24 13:45 11/01/24 06:20 Saline 0.9% IV 75 mls/hr .[id number] TERRENCE Administration Naloxone HCl 0.2 mg 10/31/24 13:40 Naloxone 0.4 Mg/Ml 1 Ml Vial IV Q2M PRN Opioid Reversal Ondansetron HCl 4 mg 10/31/24 13:40 Ondansetron 4 Mg/2 Ml Vial IVP Q8HR PRN Nausea And Vomiting Intake and Output 10/31/24 11/01/24 11/01/24 22:59 06:59 14:59 Other: Voiding Method Toilet Toilet # Voids 1 2 Weight 81.647 kg 10/31/24 11:25 10/31/24 11:25
--- NOTE | 2024-11-01 16:06 | CA ---
Transthoracic Echo Report Name: Norberto Rondon Age: 43 Gender: M : 1980 Exam Date: 11/01/2024 08:27 Exam Location: [facility] Ht (in): 71 Wt (lb): 180 Ordering Physician: Hiro Taylor MD Attending/Referring Phys: Entry Level Account Representative Brenton Gonzalez RDCS Procedure CPT: Indications: near syncope Cardiac Hx: Technical Quality: Good Contrast 1: Total Dose (mL): Contrast 2: Total Dose (mL): MEASUREMENTS (Male / Female) Normal Values 2D ECHO LV Diastolic Diameter PLAX 4.8 cm 4.2 - 5.9 / 3.9 - 5.3 cm LV Systolic Diameter PLAX 3.3 cm IVS Diastolic Thickness 0.8 cm 0.6 - 1.0 / 0.6 - 0.9 cm LVPW Diastolic Thickness 1.0 cm 0.6 - 1.0 / 0.6 - 0.9 cm LV Relative Wall Thickness 0.4 RV Internal Dim ED PLAX 2.9 cm LVOT Diameter 1.8 cm LA Systolic Diameter LX 3.6 cm 3.0 - 4.0 / 2.7 - 3.8 cm LV Diastolic Volume MOD BP 88.1 cm??? 67 - 155 / 56 - 104 cm??? LV Systolic Volume MOD BP 29.7 cm??? 22 - 58 / 19 - 49 cm??? LV Ejection Fraction MOD BP 66.3 % >= 55 % LV Cardiac Index MOD BP 2100.3 cm???/min???m??? LV Diastolic Volume MOD 4C 83.0 cm??? LV Systolic Volume MOD 4C 31.4 cm??? LV Ejection Fraction MOD 4C 62.1 % LV Cardiac Index MOD 4C 1855.2 cm???/min???m??? LV Diastolic Length 4C 7.5 cm LV Systolic Length 4C 5.5 cm LV Diastolic Volume MOD 2C 88.6 cm??? LV Systolic Volume MOD 2C 27.9 cm??? LV Ejection Fraction MOD 2C 68.5 % LV Cardiac Index MOD 2C 2181.8 cm???/min???m??? LV Diastolic Length 2C 8.0 cm LV Systolic Length 2C 5.5 cm LA Volume 45.7 cm??? 18 - 58 / 22 - 52 cm??? LA Volume Index 22.5 cm???/m??? 16 - 28 cm???/m??? DOPPLER MV Area PHT 3.7 cm??? Mitral E Point Velocity 65.9 cm/s Mitral A Point Velocity 50.3 cm/s Mitral E to A Ratio 1.3 MV Deceleration Time 204.6 ms TR Peak Velocity 111.1 cm/s TR Peak Gradient 4.9 mmHg Right Atrial Pressure 5.0 mmHg Pulmonary Artery Systolic Pressu 9.9 mmHg Right Ventricular Systolic Press 9.9 mmHg FINDINGS Left Ventricle Left ventricular ejection fraction is estimated at 60-65%. Normal Left ventricular size, wall thickness, systolic function with no obvious regional wall motion abnormalities. Right Ventricle Mild right ventricular dilatation with normal function. Right ventricular systolic pressure within normal limits. Right Atrium Normal right atrial size. Left Atrium Normal left atrial size. Mitral Valve Structurally normal mitral valve. No mitral stenosis. Trace mitral regurgitation. Aortic Valve Trileaflet aortic valve. No aortic valve stenosis or regurgitation. Tricuspid Valve Structurally normal tricuspid valve. No tricuspid stenosis. Trace tricuspid regurgitation. Pulmonic Valve Structurally normal pulmonic valve. No pulmonic stenosis. Trace pulmonic regurgitation. Pericardium No pericardial effusion. Aorta Normal size aortic root and proximal ascending aorta. CONCLUSIONS Left ventricular ejection fraction 60% Trace mitral regurgitation Trace tricuspid regurgitation No pericardial effusion Previewed by: Dr. Gustavo Cummings DO (Electronically Signed) Final Date: 01 November 2024 16:05
== END 2024-11-01 15:03 | disposition home or self-care (01) ==
LOC: EC 10:15 → 6NMEDSUR 13:40
PROVIDERS: ADMIT Family Medicine; ATTEND Family Medicine
DX: R42 Dizziness and giddiness (principal); R55 Syncope and collapse; Z87.891 Personal history of nicotine dependence
CPT/HCPCS: 96360; 99285; 36415; 93005 ×2; 93306; 93270; 85379; 83880; 80053 ×2; 82550; 83605; 83735; 84443; 84484; 85025 ×2; 81003; 87636; 71046; 70450; G0378 ×2